=== PATIENT | male | born 2000 | race Caucasian/White ===

== ENCOUNTER 2021-10-29 20:02 | Emergency (ER) | payer MEDICAID ==
[~2021-10-29] VITALS: Ht 175.3 cm; Wt 75.0 kg
[2021-10-29 20:07] VITALS: TEMP 98.4
[2021-10-29 20:43] LABS: BASO % 0.3 % (0.0-2.0); EOS # 0.1 K/mm3 (0.0-0.7); GRAN # 6.1 K/mm3 (1.4-6.5); LYMPH # 3.2 K/mm3 (1.2-3.4); LYMPH % 31.8 % (20.0-51.0); MEAN CELL VOLUME 84 fl (80.0-95.0); MEAN CORPUSCULAR HEMOGLOBIN 29 pg (26-32); MEAN CORPUSCULAR HGB CONC 35 g/dl (33.0-37.0); MEAN PLATELET VOLUME 9.2 fl (7.4-10.4); MONO # 0.6 K/mm3 (0.1-0.6); MONO % 5.5 % (1.7-9.3); PLATELET COUNT 299 K/mm3 (130-400); RED BLOOD COUNT 5.81 M/mm3 (4.20-5.60); REDCELL DISTRIBUTION WIDTH-CV 12.5 % (11.5-14.5)
[2021-10-29 21:10] LABS: ALANINE AMINOTRANSFERASE 14 U/L (0-55); ALBUMIN 4.1 gm/dL (3.5-5.0); ALKALINE PHOSPHATASE 66 U/L (40-150); ANION GAP 11 mmol/L (7-16); AST,SGOT 19 U/L (5-34); BILIRUBIN,TOTAL 0.4 mg/dL (0.2-1.2); BLOOD UREA NITROGEN 15 mg/dL (9-21); CARBON DIOXIDE 23 mmol/L (22-29); CHLORIDE 108 mmol/L (98-107); CREATININE, serum 1.18 mg/dL (0.72-1.25); GLUCOSE 98 mg/dL (70-99); POTASSIUM 4.1 mmol/L (3.5-4.5); SODIUM 142 mmol/L (136-145); TOTAL PROTEIN 6.3 gm/dL (6.2-8.1)
[2021-10-29 21:19] LABS: TROPONIN-I < 0.010 ng/mL (0.00-0.033)
[2021-10-29 21:44] VITALS: BP 124/88; PULSE 75
== END 2021-10-29 21:44 | disposition home or self-care (01) ==
LOC: COL.ER 20:02
PROVIDERS: Emergency Medicine
DX: R07.89 Other chest pain (principal)

== ENCOUNTER 2021-11-05 22:13 | Emergency (ER) | payer MEDICAID ==
[~2021-11-05] VITALS: Ht 175.3 cm; Wt 75.0 kg
[2021-11-05 22:18] VITALS: TEMP 98
[2021-11-05 22:55] VITALS: BP 114/78; PULSE 80
== END 2021-11-05 22:55 | disposition home or self-care (01) ==
LOC: COL.ER 22:13
DX: F41.0 Panic disorder [episodic paroxysmal anxiety] (principal); Z28.310 Unvaccinated for COVID-19

== ENCOUNTER 2022-07-21 12:06 | Emergency (ER) | payer MEDICAID ==
[~2022-07-21] VITALS: Ht 175.3 cm; Wt 77.3 kg
[2022-07-21 12:23] VITALS: TEMP 98.6
[2022-07-21 12:50] VITALS: BP 123/69; PULSE 83
== END 2022-07-21 12:50 | disposition home or self-care (01) ==
LOC: COL.ER 12:06
DX: T18.9XXA Foreign body of alimentary tract, part unspecified, initial encounter (principal)